=== PATIENT | female | born 1995 | race Caucasian/White ===

== ENCOUNTER → 2018-03-07 09:50 | Outpatient (CLI) | payer BC, SELFPAY ==
[2018-03-07 12:22] LABS: Internal QC Validated? YES +Cl - CLEAR BKGD; Pregnancy, Urine Negative Negative
== END ==
PROVIDERS: Family Provider Family Medicine; PCP Family Medicine; Visit Provider Internal Medicine Pulmonary Disease
DX: N91.2 Amenorrhea, unspecified (principal)
CPT/HCPCS: 81025

== ENCOUNTER → 2018-04-16 16:31 | Outpatient (CLI) | payer BC, SELFPAY ==
[2018-04-16 18:55] LABS: Absolute Lymphocyte Count 1.86 X10^3/ul (0.83-4.51); Basophil# 0.03 X10^3/uL; Basophil% 0.5 % (0-1); Eosinophil# 0.17 X10^3/uL; Eosinophils% 2.6 % (0-5); Hematocrit 40.3 % (37-47); Hemoglobin 13.4 g/dl (12.0-15.0); Lymphocyte # 1.86 X10^3/ul (4.0); Lymphocyte % 28.9 % (19-41); Mean Corp Hgb Conc 33.3 g/gl (32-36); Mean Corpuscular Hgb 30.5 pg (27.0-32.0); Mean Corpuscular Volume 91.6 fL (81-99); Mean Platelet Vol. 9.9 fl (6.2-12.0); Monocyte% 6.2 % (0-10); Neutrophil # 3.95 X10^3/uL (2.7-7.7); Neutrophil % 61.3 % (47-70); POSITIVE COUNT NO; POSITIVE DIFFERENTIAL NO; POSITIVE MORPHOLOGY NO; Platelet Count 427 K/mm3 (150-450); RBC Distribution Width CV 12.7 % (11.6-14.6); White Blood Count 6.4 K/mm3 (4.4-11.0)
[2018-04-16 18:57] LABS: Hemoglobin A1c 5.4 % (4.2-6.3)
[2018-04-16 19:01] LABS: ALB/GLOB Ratio 0.9 RATIO (0.9-2.4); AST(SGOT) 25 U/L (15-37); Alanine Aminotransfer ALT/SGPT 46 U/L (13-56); Albumin, Serum 3.6 g/dL (3.2-5.0); Alkaline Phosphatase 84 U/L (45-117); Anion Gap 9 (5-15); BUN 15 mg/dL (7-18); BUN/Creat Ratio 19.1 RATIO (10-20); Chloride 105 mmol/L (98-107); Cholesterol 204 mg/dL (200); Creatinine, Serum 0.78 mg/dL (0.55-1.02); EST Glomerular Filtration Rate 96 mL/min (>60); Est Glom Filt Rate - Afr Amer 116 mL/min (>60); Free T3 2.4 pg/mL (2.18-3.98); Globulin 4.2 g/dL (2.2-4.2); Glucose 91 mg/dL (74-106); High Density Lipoprotein 42 mg/dL; Potassium 4.1 mmol/L (3.5-5.1); Protein, Total 7.8 g/dL (6.4-8.2); Sodium Level 138 mmol/L (136-145); T4 Free Direct 0.88 ng/dL (0.76-1.46); Thyroid Stim Hormone (TSH) 2.33 uIU/mL (0.358-3.74); Triglycerides 161 mg/dL; Very Low Density Lipoprotein 32 mg/dL (5-40)
[2018-04-16 19:08] LABS: Vitamin D,25 Hydroxy 11.7 ng/mL (29.95-100.01)
== END ==
PROVIDERS: Family Provider Family Medicine; PCP Family Medicine; Visit Provider Family Medicine
DX: F32.9 Major depressive disorder, single episode, unspecified (principal); E04.1 Nontoxic single thyroid nodule; N92.6 Irregular menstruation, unspecified; E66.9 Obesity, unspecified
CPT/HCPCS: 36415; 80053; 80061; 82306; 83036; 84439; 84443; 84481; 85025

== ENCOUNTER → 2018-05-03 10:30 | Outpatient (CLI) | payer BC, SELFPAY ==
[2018-05-03 14:04] LABS: Progesterone Level 0.54 ng/mL (See Comment)
[2018-05-03 14:10] LABS: Follicle Stimulating Hormone 4.7 mIU/mL; Luteinizing Hormone 8.4 mIU/mL
[2018-05-03 14:21] LABS: Pregnancy, Serum, hCG Quali. NEGATIVE Negative (0-9 Nonpreg)
== END ==
PROVIDERS: Visit Provider Obstetrics & Gynecology
DX: N92.6 Irregular menstruation, unspecified (principal)
CPT/HCPCS: 36415; 82670; 83001; 83002; 84144; 84403; 84703

== ENCOUNTER 2025-02-03 17:23 | Emergency (ER) | payer BC, SELFPAY ==
[2025-02-03 17:24] VITALS: BP 162/95; PULSE 110; RESP 18; TEMP 36.8; O2SAT 99; BMI 49.6
--- NOTE | 2025-02-03 18:05 | EKG12_ITS ---
Test Reason : CP Blood Pressure : */* mmHG Vent. Rate : 96 BPM Atrial Rate : 96 BPM P-R Int : 158 ms QRS Dur : 110 ms QT Int : 358 ms P-R-T Axes : 29 -12 21 degrees QTcB Int : 452 ms Normal sinus rhythm Normal ECG Confirmed by TASHI RODRIGUEZ, BILLY ([id number]), editor news SELENA COBB ([id number]) on 02/05/2025 6:35:56 AM Referred By: Confirmed By: BILLY AKINS MD
--- NOTE | 2025-02-03 18:06 | RAD_ITS ---
PROCEDURE: CHEST PA AND LATERAL 02/03/2025 REASON FOR EXAM: CHEST PAIN TECHNIQUE: CHEST PA AND LATERAL COMPARISON: None. FINDINGS: The heart is normal in size. The lungs are clear. No acute osseous abnormalities. RAD/Chest PA and Lateral IMPRESSION: No acute cardiopulmonary abnormalities. Reading Location: [place] [id number]
--- NOTE | 2025-02-03 18:09 | ED.VIS.CHEST ---
HPI History of Present Illness Chief Complaint: Chest Pain Narrative Narrative: Chief complaint and HPI: Chest pain. 29-year-old female with past medical history of depression and anxiety presents for evaluation of episodic chest pain. Patient states yesterday while playing a video game she developed chest pain. States it traveled down both arms in which she became lightheaded and short of breath. She states this resolved but then happened again today. She did not take anything for the pain. States she has irregular periods but does not believe herself to be . Denies a history of DVT/PE, blood clotting disorder, recent trauma or surgery, unilateral leg swelling, known malignancy, travel. Denies any injury or trauma. Review of systems: See HPI Medications: As listed on the chart Allergies: As listed on the chart PFSH: Per chart Vital signs: As listed on the chart. Reviewed. Physical exam: Gen: A&O x3, NAD Head: Normocephalic, atraumatic Eyes: No sclera icterus, conjunctiva clear PERRL, ENT: Moist mucous membranes Neck: Trachea midline, No JVD CV: RRR, no murmurs, no peripheral edema Resp: Lungs CTA BL, no w/r/c GI: Abd soft, non-distended, non-tender, no r/r/g Musc: Full ROM, no deformity Skin: Warm, dry Neuro: Alert, oriented, grossly intact, sensation intact Psych: Cooperative, appropriate mood and affect [facility] Medical History (Updated 02/03/25 @ 18:25 by Dudley Pham) Asperger disorder Autism Depression Infected dental caries COVID-19 Home Medications ?Medication ?Instructions ?Recorded ?Last Taken ?Type brexpiprazole 1 mg tablet (Rexulti) 1 mg PO DAILY 02/03/25 Unknown History desvenlafaxine succinate 50 mg 50 mg PO DAILY 02/03/25 Unknown History tablet,extended release 24 hr methylphenidate HCl 27 mg 27 mg PO DAILY 02/03/25 Unknown History tablet,extended release 24 hr Allergy/AdvReac Type Severity Reaction Status Date / Time No Known Allergies Allergy Verified 02/03/25 17:26 Social History Smoking Status: Never smoker EXAM Physical Exam Const Vital Signs: 02/03/25 17:24 02/03/25 18:25 02/03/25 19:24 Temperature 98.3 F Temperature Source Oral Pulse Rate 110 H 90 Respiratory Rate 18 23 H Respiratory Effort Normal Respiratory Pattern Normal Blood Pressure 162/95 H 107/72 Blood Pressure Mean 117 83 Pulse Ox 99 98 Oxygen Delivery Method Room Air Room Air 02/03/25 21:00 Temperature Temperature Source Pulse Rate 90 Respiratory Rate 15 Respiratory Effort Respiratory Pattern Blood Pressure Blood Pressure Mean Pulse Ox 96 Oxygen Delivery Method Room Air MDM MDM MDM Narrative Medical decision making narrative: 29-year-old female presents for evaluation of episodic chest pain. See HPI. Differential diagnosis includes but is not limited to myofascial spasm, pleurisy, anxiety reaction, electrolyte abnormality, dehydration, suspect less likely , ACS, PE. Aspirin ordered for pain. Cardiac workup ordered. CBC without leukocytosis or anemia. D-dimer unremarkable. BMP unremarkable. Serum negative. Troponin negative x 2. At this point in time no clear etiology to explain patient's episodic chest pain. May be myofascial spasm. Recommend following up with primary care physician. Return precautions explained. Patient confirmed understanding of the plan. EKG: Interpreted by me/EM physician: EKG shows normal sinus rhythm without acute ischemic changes. Heart rate 96. Diagnostic: Interpreted by me/EM physician: Chest x-ray without pneumonia, effusion, cardiomegaly, pneumothorax. Radiology in agreement. Impression: 1. Episodic chest pain Lab Data Labs: Laboratory Results - last 24 hr 02/03/25 02/03/25 18:20 20:00 WBC 7.5 RBC 4.54 Hgb 13.5 Hct 41.0 MCV 90.3 MCH 29.7 MCHC 32.9 RDW Std Deviation 41.5 RDW Coeff of Edd 12.6 Plt Count 432 MPV 9.3 Immature Gran % (Auto) 0.400 Neut % (Auto) 55.3 Lymph % (Auto) 34.4 [place] % (Auto) 6.1 Eos % (Auto) 2.7 Baso % (Auto) 1.1 H Absolute Neuts (auto) 4.2 Absolute Lymphs (auto) 2.58 Nucleated RBC % 0 D-Dimer Quant (PE/DVT) 0.27 Sodium 138 Potassium 3.9 Chloride 104 Carbon Dioxide 21.5 Anion Gap 13 BUN 11 Creatinine 0.79 Estim Creat Clear Calc 145.17 Est GFR (MDRD) Non-Af 104 BUN/Creatinine Ratio 13.7 Glucose 118 H Calcium 9.6 Troponin T High Sens < 6 Troponin T Hi Sens 2 Hr < 6 Serum , Qual NEGATIVE Radiography Diagnostic Testing: Clinical Impression(s) from Imaging Studies Chest X-Ray 02/03/25 18:06 IMPRESSION: No acute cardiopulmonary abnormalities. Reading Location: [id number] Discharge Plan Triage Chief Complaint: Chest Pain ED Provider: Francesco Garcia Dx/Rx/DC Orders Prescriptions: No Action methylphenidate HCl 27 mg tablet extended release 24hr 27 mg PO DAILY desvenlafaxine succinate 50 mg tablet extended release 24 hr 50 mg PO DAILY Rexulti 1 mg tablet 1 mg PO DAILY Primary Care Provider: Care Physician,No Primary Referrals: Care Physician,No Primary [Primary Care Provider] - Print Language: Tajik
[2025-02-03 18:30] LABS: Hematocrit 41.0 % (37-47); Hemoglobin 13.5 g/dL (12.0-15.0); Immature Granulocytes Count 0.030 X10^3/uL (0.0-0.0); Mean Corp Hgb Conc 32.9 g/dL (32-36); Mean Corpuscular Volume 90.3 fL (81-99); Mean Platelet Vol. 9.3 fl (6.2-12.0); NRBC Flagged by Analyzer 0 % (0-5); Platelet Count 432 K/mm3 (150-450); RBC Distribution Width CV 12.6 % (11.6-14.6); RBC Distribution Width SD 41.5 fl (35.1-43.9); Red Blood Count 4.54 M/mm3 (4.2-5.4); White Blood Count 7.5 K/mm3 (4.4-11.0)
[2025-02-03 18:49] LABS: D-Dimer Quantitative (DVT/PE) 0.27 FEU/ug/m (0.27-0.49)
[2025-02-03 18:51] LABS: Internal QC Validated? YES +Cl - CLEAR BKGD; Pregnancy, Serum, hCG Quali. NEGATIVE Negative; Record Kit Lot#, Serum Preg. 947241
[2025-02-03 19:03] LABS: Anion Gap 13 (5-15); BUN 11 mg/dL (4-19); BUN/Creat Ratio 13.7 RATIO (10-20); Calcium,Total 9.6 mg/dL (7.6-11.0); Carbon Dioxide 21.5 mmol/L (21.0-32.0); Chloride 104 mmol/L (98-108); Estimated Creatinine Clearance 145.17 ml/min (50-250); Glucose 118 mg/dL (70-99); Potassium 3.9 mmol/L (3.3-5.1); Troponin T High Sensitivity < 6 ng/L (<=14)
[2025-02-03 19:24] VITALS: BP 107/72; PULSE 90; RESP 23; O2SAT 98
[2025-02-03 21:00] VITALS: PULSE 90; RESP 15; O2SAT 96
[2025-02-03 21:01] LABS: Troponin T High Sens 2 HR < 6 ng/L (<=14)
[2025-02-03 21:32] VITALS: BP 109/72; PULSE 93; RESP 96; TEMP 36.8; O2SAT 96
== END 2025-02-03 21:35 | disposition home or self-care (01) ==
PROVIDERS: Emergency Provider Surgery; Visit Provider Surgery
DX: R07.9 Chest pain, unspecified (principal); F84.5 Asperger's syndrome; F32.A Depression, unspecified; Z79.899 Other long term (current) drug therapy
CPT/HCPCS: 71046; 80048; 84484; 84703; 85025; 85379; 93005; 99284; A4216

== ENCOUNTER → 2025-03-23 | Outpatient (CLI) | payer BC, SELFPAY ==
[2025-03-23 18:35] LABS: CORTISOL PM 5.72 ug/dL (2.68-10.50); Free T3 2.5 pg/mL (2.18-3.98); Vitamin D,25 Hydroxy 22.3 ng/mL (30-100)
[2025-03-23 18:40] LABS: CRP 17.30 mg/L (0.0-3.0)
[2025-03-25 15:09] LABS: ANTINUCLEAR ANTIBODIES DIRECT Negative (Negative); PROEL- A/G Ratio 1.0 (0.7-1.7); PROEL- Albumin 3.6 g/dL (2.9-4.4); PROEL- Alpha-1 Globulin 0.3 g/dL (0.0-0.4); PROEL- Alpha-2 Globulin 0.9 g/dL (0.4-1.0); PROEL- Beta Globulin 1.2 g/dL (0.7-1.3); PROEL- Gamma Globulin 1.1 g/dL (0.4-1.8); PROEL- Globulin, Total 3.5 g/dL (2.2-3.9); PROEL- TOTAL PROTEIN 7.1 g/dL (6.0-8.5); PROEL-M-Spike Not Observed g/dL (Not Observed)
== END | disposition home or self-care (01) ==
LOC: MFPLAB 15:49
PROVIDERS: PCP Family Medicine; Referring Provider Family Medicine; Visit Provider Family Medicine
DX: E03.9 Hypothyroidism, unspecified (principal); M25.50 Pain in unspecified joint
CPT/HCPCS: 36415; 82306; 82533; 84165; 84439; 84443; 84481; 85652; 86038; 86140; 86431